=== PATIENT | female | born 1965 | race Asian ===

== ENCOUNTER 2017-09-10 13:31 | Emergency (ER) | payer OTHER ==
[~2017-09-10] VITALS: Ht 157.5 cm; Wt 70.3 kg
[2017-09-10 13:44] VITALS: Ht 157.5 cm; Wt 70.3 kg
[2017-09-10 14:47] VITALS: BP 145/72
== END 2017-09-10 14:47 | disposition home or self-care (01) ==
LOC: ED 13:31
DX: T78.3XXA Angioneurotic edema, initial encounter (principal); E78.00 Pure hypercholesterolemia, unspecified; I10 Essential (primary) hypertension; E11.9 Type 2 diabetes mellitus without complications; K21.9 Gastro-esophageal reflux disease without esophagitis; Z76.0 Encounter for issue of repeat prescription; Z91.040 Latex allergy status; Z88.0 Allergy status to penicillin; Y92.89 Other specified places as the place of occurrence of the external cause

== ENCOUNTER 2017-10-08 16:13 | Emergency (ER) | payer OTHER ==
[~2017-10-08] VITALS: Ht 160 cm; Wt 69.8 kg
[2017-10-08 16:24] VITALS: BP 147/82; Ht 160 cm; Wt 69.8 kg
== END 2017-10-08 16:51 | disposition home or self-care (01) ==
LOC: ED 16:13
DX: L50.0 Allergic urticaria (principal); K21.9 Gastro-esophageal reflux disease without esophagitis; I10 Essential (primary) hypertension; E11.9 Type 2 diabetes mellitus without complications; E78.00 Pure hypercholesterolemia, unspecified; Z88.0 Allergy status to penicillin; Z91.040 Latex allergy status